=== PATIENT | female | born 1990 | race Caucasian/White ===

== ENCOUNTER → 2020-09-07 | Outpatient (CLI) | payer BC ==
[~2020-09-07] MED LIST: CYCL-1 PO; PROC5TAB56 PO; SUMA1TAB12 PO; SUMA25TA35 PO
== END | disposition home or self-care (01) ==
LOC: RAD 12:24
PROVIDERS: ATTEND Internal Medicine Hematology & Oncology
DX: R20.0 Anesthesia of skin (principal); R20.2 Paresthesia of skin
CPT/HCPCS: 72141

== ENCOUNTER 2020-09-28 09:02 | Outpatient (CLI) | payer BC ==
[2020-09-28] MEDS ORDERED: GADOTERATE MEGLUMINE 7.5 MMOL/15 ML VIAL IV ONE (14:01)
== END 2020-09-28 23:59 | disposition home or self-care (01) ==
LOC: RAD 09:02
PROVIDERS: ATTEND Internal Medicine Hematology & Oncology
DX: G35 Multiple sclerosis (principal); G93.89 Other specified disorders of brain
CPT/HCPCS: 70553; A9575

== ENCOUNTER 2024-05-10 17:45 | Emergency (ER) | payer BC, OTHER ==
[~2024-05-10] VITALS: Ht 175.3 cm; Wt 82.5 kg
[2024-05-10 18:51] LABS: BILIRUBIN,URINE NEGATIVE (Neg); CLARITY,URINE CLOUDY (Clear); COLOR,URINE YELLOW (Yellow); GLUCOSE, URINE NEGATIVE (Neg); KETONES,URINE NEGATIVE (Neg); LEUKOCYTE ESTERASE ,URINE MODERATE (Neg); NITRITES, URINE POSITIVE (Neg); OCCULT BLOOD,URINE MODERATE (Neg); PROTEIN,URINE TRACE mg/dl (Neg); UROBILINOGEN,URINE 0.2 E.U/dL (0.2-1.0)
[2024-05-10 19:00] LABS: UA COLLECTION TYPE CLN CATCH MIDSTREAM
[2024-05-10 19:03] LABS: BACTERIA,URINE 4+ /HPF (Neg); SQUAMOUS EPITHELIAL CELL,UR FEW /LPF (FEW); WBC,URINE TNTC /HPF (0-4)
[2024-05-10 19:37] LABS: BASOPHILS % (AUTO) 0.3 % (0-1); EOSINOPHILS % (AUTO) 0.4 % (0-6); HEMATOCRIT 35.5 % (35.0-45.0); HEMOGLOBIN 12.2 g/dl (12.0-16.0); LYMPHOCYTES # (AUTO) 0.8 X10'3 (1.1-4.8); LYMPHOCYTES % (AUTO) 8.9 % (21-51); MEAN CORPUSCULAR HEMOGLOBIN 33.4 PG (27.0-31.0); MEAN CORPUSCULAR HGB CONC 34.4 g/dL (33.0-36.5); MEAN PLATELET VOLUME 7.9 FL (7.4-10.4); MONOCYTES # (AUTO) 0.4 X10'3 (0-0.9); MONOCYTES % (AUTO) 4.5 % (2-12); NEUTROPHILS # (AUTO) 8.2 X10'3 (1.8-7.7); NEUTROPHILS % (AUTO) 85.9 % (42-75); PLATELET COUNT 256 X10'3 (140-440); RED BLOOD COUNT 3.66 X10'6 (4.20-5.60); RED CELL DISTRIBUTION WIDTH 12.8 % (11.5-14.5); WHITE BLOOD COUNT 9.5 X10'3 (4.5-11.0)
[2024-05-10 19:51] LABS: ALANINE AMINOTRANSFERASE 32 U/L (12-78); ALBUMIN 4.2 G/DL (3.4-5.0); ALBUMIN/GLOBULIN RATIO 1.3 (1.1-1.5); ALKALINE PHOSPHATASE 89 IU/L (46-116); ANION GAP 9 (8-16); ASPARTATE AMINO TRANSFERASE 37 U/L (10-37); BILIRUBIN,TOTAL 0.4 MG/DL (0.1-1.0); BLOOD UREA NITROGEN 10 MG/DL (7-18); BUN/CREATININE RATIO 16.9 (10.0-20.0); CALCIUM 8.9 MG/DL (8.5-10.1); CHLORIDE 100 MMOL/L (99-107); CREATININE 0.59 MG/DL (0.40-0.90); GLUCOSE 110 MG/DL (70-104); POTASSIUM 4.2 MMOL/L (3.5-5.1); SODIUM 136 MMOL/L (135-145); TOTAL CARBON DIOXIDE 26.6 MMOL/L (24-32); TOTAL PROTEIN 7.5 G/DL (6.4-8.2); eCRCL 142 ML/MIN; eGFR > 90 ML/MIN
[2024-05-10] MEDS: diphenhydrAMINE 50 mg/ml inj IV ONE (19:58)
[2024-05-10] MEDS: proCHLORperazine 10 MG/2 ml inj IV ONE (19:59)
[2024-05-10] MEDS: ketorolac trometh 15mg/ml vial 15 MG/ML ML IV ONE (19:59)
[2024-05-10] MEDS: normal saline 1000ML IV soln IVB ONE (20:00)
[2024-05-10] MEDS: CefTRIAXone/D5W-Rocephin 1gm 50 ML IV ONE (20:54)
[2024-05-10] MEDS ORDERED: CEFP200T13 PO (21:35)
[2024-05-10] MEDS: acetaminophen 325mg tablet PO ONE (21:36)
[2024-05-10] MEDS: HYDROcodone/acetaminophen 5mg/325mg tablet PO ONE (22:22)
[2024-05-10 23:56] VITALS: BP 103/58; PULSE 120; RESP 15; TEMP 100; O2SAT 100
== END 2024-05-10 23:58 | disposition home or self-care (01) ==
LOC: ER 17:46
DX: N10 Acute pyelonephritis (principal); G43.909 Migraine, unspecified, not intractable, without status migrainosus; M19.90 Unspecified osteoarthritis, unspecified site; D64.9 Anemia, unspecified; Z72.89 Other problems related to lifestyle; Z90.89 Acquired absence of other organs
CPT/HCPCS: 36415; 71045; 76770; 80053; 81001; 85025; 87088; 96361; 96365; 96375; 99285; J0696; J0780; J1200; J1885; J7030

== ENCOUNTER 2024-05-14 20:39 | Inpatient (IN) | payer OTHER ==
[~2024-05-14] VITALS: Ht 175.3 cm; Wt 180.0 kg
[~2024-05-14 20:39] MED LIST changes: +CEFP200T13 PO
[2024-05-14 21:55] LABS: BASOPHILS % (AUTO) 0.5 % (0-1); EOSINOPHILS # (AUTO) 0.1 X10'3 (0-0.9); EOSINOPHILS % (AUTO) 1.8 % (0-6); HEMATOCRIT 32.3 % (35.0-45.0); LYMPHOCYTES # (AUTO) 1.6 X10'3 (1.1-4.8); LYMPHOCYTES % (AUTO) 34.3 % (21-51); MEAN CORPUSCULAR HEMOGLOBIN 33.2 PG (27.0-31.0); MEAN CORPUSCULAR VOLUME 97.6 FL (78-98); MEAN PLATELET VOLUME 7.9 FL (7.4-10.4); MONOCYTES # (AUTO) 0.3 X10'3 (0-0.9); MONOCYTES % (AUTO) 6.4 % (2-12); NEUTROPHILS # (AUTO) 2.7 X10'3 (1.8-7.7); PLATELET COUNT 288 X10'3 (140-440); RED BLOOD COUNT 3.31 X10'6 (4.20-5.60); RED CELL DISTRIBUTION WIDTH 12.8 % (11.5-14.5); WHITE BLOOD COUNT 4.8 X10'3 (4.5-11.0)
[2024-05-14 22:02] LABS: ALANINE AMINOTRANSFERASE 101 U/L (12-78); ALBUMIN 3.7 G/DL (3.4-5.0); ALBUMIN/GLOBULIN RATIO 1.1 (1.1-1.5); ALKALINE PHOSPHATASE 123 IU/L (46-116); ANION GAP 6 (8-16); ASPARTATE AMINO TRANSFERASE 29 U/L (10-37); BILIRUBIN,TOTAL 0.2 MG/DL (0.1-1.0); BLOOD UREA NITROGEN 6 MG/DL (7-18); BUN/CREATININE RATIO 14.3 (10.0-20.0); CALCIUM 8.9 MG/DL (8.5-10.1); CHLORIDE 105 MMOL/L (99-107); CREATININE 0.42 MG/DL (0.40-0.90); GLUCOSE 99 MG/DL (70-104); POTASSIUM 3.7 MMOL/L (3.5-5.1); SODIUM 143 MMOL/L (135-145); TOTAL CARBON DIOXIDE 31.8 MMOL/L (24-32); TOTAL PROTEIN 7.2 G/DL (6.4-8.2); eCRCL 199 ML/MIN; eGFR > 90 ML/MIN
[2024-05-14 22:05] LABS: BILIRUBIN,URINE NEGATIVE (Neg); GLUCOSE, URINE NEGATIVE (Neg); KETONES,URINE NEGATIVE (Neg); LEUKOCYTE ESTERASE ,URINE MODERATE (Neg); NITRITES, URINE POSITIVE (Neg); OCCULT BLOOD,URINE MODERATE (Neg); PH,URINE 6.5 (4.8-8.0); PROTEIN,URINE NEGATIVE (Neg); UROBILINOGEN,URINE 0.2 E.U/dL (0.2-1.0)
[2024-05-14 22:07] LABS: CLARITY,URINE SLIGHTLY CLOUDY (Clear); COLOR,URINE AMBER (Yellow); UA COLLECTION TYPE STRAIGHT CATH; URINE HCG NEGATIVE (NEG)
[2024-05-14 22:11] LABS: BACTERIA,URINE 3+ /HPF (Neg); RBC,URINE 20-50 /HPF (0-2); SQUAMOUS EPITHELIAL CELL,UR NONE SEEN /LPF (FEW); WBC CLUMPS,URINE MANY /HPF (NEGATIVE); WBC,URINE TNTC /HPF (0-4)
[2024-05-14] MEDS: proCHLORperazine 10 MG/2 ml inj IV ONE (22:11)
[2024-05-14] MEDS: diphenhydrAMINE 50 mg/ml inj IV ONE (22:11)
[2024-05-14] MEDS: normal saline 1000ml 1,000 ML IV ONE (22:12)
[2024-05-14] MEDS: piperacillin/tazo 3.375gm/50ml 50 ML IV ONE (22:30)
[2024-05-14] MEDS: morphine 4 MG/ML inj SYRINge IV ONE (22:33)
[2024-05-15] VITALS (8 sets, daily range): BP systolic 100–115; BP diastolic 65–77; PULSE 76–85; RESP 16–18; TEMP 97.3–99.3; O2SAT 94–98
[2024-05-15] MEDS ORDERED: bisacodyl 10mg suppository rectal RC PRN (00:10)
[2024-05-15] MEDS ORDERED: potassium Cl 20 mEq SR tablet PO PRN ×2 (00:10)
[2024-05-15] MEDS ORDERED: acetaminophen 325mg tablet PO PRN (00:10)
[2024-05-15] MEDS ORDERED: magnesium Cl slow-release 64mg tablet PO PRN (00:10)
[2024-05-15] MEDS ORDERED: magnesium sulf-water 2g/50mL 50 ML IV PRN (00:10)
[2024-05-15] MEDS ORDERED: magnesium hydroxide 30ml (MOM) UD suspension PO PRN (00:10)
[2024-05-15] MEDS ORDERED: magnesium sulf-water 4G/100mL 100 ML IV PRN (00:10)
[2024-05-15] MEDS ORDERED: potassium Cl 40MEQ/1/2NS 520ml 520 ML IV PRN (00:10)
[2024-05-15] MEDS: normal saline 1000ml 1,000 ML IV SCH (00:53)
[2024-05-15 00:58] LABS: PRO BRAIN NATRIURETIC PEPTIDE 384 PG/ML (0-125)
[2024-05-15] MEDS ORDERED: MODA100T31 PO (01:43)
[2024-05-15] MEDS ORDERED: CYCL-394 PO (01:43)
[2024-05-15] MEDS ORDERED: OXCA150T53 PO (01:43)
[2024-05-15] MEDS ORDERED: GABA300C PO (01:43)
[2024-05-15] MEDS ORDERED: VALA100031 PO (01:43)
[2024-05-15] MEDS ORDERED: ONDA-243 PO (01:43)
[2024-05-15] MEDS ORDERED: HYDR-3965 PO (01:43)
[2024-05-15] MEDS ORDERED: OMEP40CA21 PO (01:43)
[2024-05-15] MEDS: morphine 2 MG/ML inj. syringe IV PRN (03:14)
[2024-05-15] MEDS ORDERED: NAPROXEN SOD PO PRN (04:25)
[2024-05-15] MEDS ORDERED: SUMATRIPTAN SUCC PO PRN (04:25)
[2024-05-15] MEDS ORDERED: OXCA150T14 PO (04:44)
[2024-05-15 07:01] LABS: POTASSIUM 3.6 MMOL/L (3.5-5.1)
[2024-05-15] MEDS: K and/or MAG REPLACEMENT MC SCH (07:06)
[2024-05-15] MEDS: enoxaparin 40mg/0.4ml syringe SUBCUT SCH (08:00)
[2024-05-15] MEDS: docusate sod 100mg capsule PO SCH (08:00)
[2024-05-15] MEDS ORDERED: OXCARBAZEPINE PO SCH (08:00)
[2024-05-15] MEDS ORDERED: modafinil 100mg tablet PO PRN (08:00)
[2024-05-15] MEDS: piperacillin/tazo 3.375gm/50ml 50 ML IV SCH (08:20)
[2024-05-15] MEDS: gabapentin 300mg capsule PO SCH (08:21)
[2024-05-15] MEDS: cyclobenzaprine 10mg tablet PO SCH (08:21)
[2024-05-15] MEDS: HYDROcodone/acetaminophen 5mg/325mg tablet PO SCH (08:23)
[2024-05-15] MEDS: pantoprazole 40mg Tablet.DR PO SCH (08:23)
[2024-05-15] MEDS: valacyclovir 500mg tablet PO SCH (08:23)
[2024-05-15] MEDS: oxcarbazepine 150mg tablet PO SCH (08:23)
[2024-05-15] MEDS: SUMAtriptan 25 MG tablet PO PRN (10:09)
[2024-05-15] MEDS: HYDROcodone/acetaminophen 5mg/325mg tablet PO PRN (12:04)
[2024-05-16] MEDS: HYDROmorphone/PF 0.2 MG/ML SYRINGE IV PRN (04:58)
[2024-05-16 06:00] VITALS: BP 129/78; PULSE 76; RESP 16; TEMP 97; O2SAT 96
[2024-05-16 06:49] LABS: BASOPHILS % (AUTO) 0.5 % (0-1); EOSINOPHILS # (AUTO) 0.1 X10'3 (0-0.9); EOSINOPHILS % (AUTO) 2.8 % (0-6); HEMATOCRIT 30.1 % (35.0-45.0); HEMOGLOBIN 10.4 g/dl (12.0-16.0); LYMPHOCYTES # (AUTO) 2.2 X10'3 (1.1-4.8); LYMPHOCYTES % (AUTO) 47.2 % (21-51); MEAN CORPUSCULAR HEMOGLOBIN 33.4 PG (27.0-31.0); MEAN CORPUSCULAR HGB CONC 34.5 g/dL (33.0-36.5); MEAN CORPUSCULAR VOLUME 96.8 FL (78-98); MEAN PLATELET VOLUME 7.7 FL (7.4-10.4); MONOCYTES # (AUTO) 0.4 X10'3 (0-0.9); MONOCYTES % (AUTO) 8.2 % (2-12); NEUTROPHILS # (AUTO) 1.9 X10'3 (1.8-7.7); NEUTROPHILS % (AUTO) 41.3 % (42-75); PLATELET COUNT 245 X10'3 (140-440); RED BLOOD COUNT 3.11 X10'6 (4.20-5.60); RED CELL DISTRIBUTION WIDTH 12.8 % (11.5-14.5); WHITE BLOOD COUNT 4.6 X10'3 (4.5-11.0)
[2024-05-16 06:58] LABS: ALANINE AMINOTRANSFERASE 56 U/L (12-78); ALBUMIN 2.9 G/DL (3.4-5.0); ALBUMIN/GLOBULIN RATIO 0.9 (1.1-1.5); ALKALINE PHOSPHATASE 91 IU/L (46-116); ANION GAP 5 (8-16); ASPARTATE AMINO TRANSFERASE 18 U/L (10-37); BILIRUBIN,TOTAL 0.2 MG/DL (0.1-1.0); BLOOD UREA NITROGEN 7 MG/DL (7-18); BUN/CREATININE RATIO 13.2 (10.0-20.0); CALCIUM 8.6 MG/DL (8.5-10.1); CHLORIDE 107 MMOL/L (99-107); CREATININE 0.53 MG/DL (0.40-0.90); GLUCOSE 97 MG/DL (70-104); MAGNESIUM 2.1 MG/DL (1.5-2.4); POTASSIUM 3.7 MMOL/L (3.5-5.1); SODIUM 140 MMOL/L (135-145); TOTAL CARBON DIOXIDE 27.7 MMOL/L (24-32); TOTAL PROTEIN 6.2 G/DL (6.4-8.2); eCRCL 158 ML/MIN; eGFR > 90 ML/MIN
[2024-05-16 10:00] VITALS: BP 130/81; PULSE 73; RESP 16; TEMP 98.5; O2SAT 94
[2024-05-16] MEDS: HYDROcodone/acetaminophen 5mg/325mg tablet PO PRN (17:01)
[2024-05-16 18:00] VITALS: BP 122/80; PULSE 73; RESP 15; TEMP 98; O2SAT 96
[2024-05-16] MEDS: MEROPENEM 500MG/50ML-NS IVPB 50 ML IV SCH (20:19)
[2024-05-16] MEDS: gabapentin 300mg capsule PO SCH (20:20)
[2024-05-16 22:00] VITALS: BP 109/62; PULSE 77; RESP 16; TEMP 98.6; O2SAT 95
[2024-05-17] MEDS: ondansetron/PF 4mg/2ml inj IV PRN (01:18)
[2024-05-17 06:00] VITALS: BP 105/63; PULSE 86; RESP 16; TEMP 100.1; O2SAT 92
[2024-05-17 06:35] LABS: BASOPHILS % (AUTO) 0.2 % (0-1); EOSINOPHILS # (AUTO) 0.1 X10'3 (0-0.9); EOSINOPHILS % (AUTO) 1.4 % (0-6); HEMOGLOBIN 11.5 g/dl (12.0-16.0); LYMPHOCYTES # (AUTO) 0.7 X10'3 (1.1-4.8); LYMPHOCYTES % (AUTO) 9.8 % (21-51); MEAN CORPUSCULAR HEMOGLOBIN 32.9 PG (27.0-31.0); MEAN CORPUSCULAR HGB CONC 33.8 g/dL (33.0-36.5); MEAN CORPUSCULAR VOLUME 97.1 FL (78-98); MEAN PLATELET VOLUME 7.7 FL (7.4-10.4); MONOCYTES # (AUTO) 0.3 X10'3 (0-0.9); MONOCYTES % (AUTO) 3.6 % (2-12); NEUTROPHILS # (AUTO) 6.1 X10'3 (1.8-7.7); PLATELET COUNT 262 X10'3 (140-440); RED CELL DISTRIBUTION WIDTH 12.7 % (11.5-14.5); WHITE BLOOD COUNT 7.2 X10'3 (4.5-11.0)
[2024-05-17 06:56] LABS: ALANINE AMINOTRANSFERASE 50 U/L (12-78); ALBUMIN 3.4 G/DL (3.4-5.0); ALBUMIN/GLOBULIN RATIO 1.1 (1.1-1.5); ALKALINE PHOSPHATASE 92 IU/L (46-116); ANION GAP 7 (8-16); ASPARTATE AMINO TRANSFERASE 12 U/L (10-37); BILIRUBIN,TOTAL 0.2 MG/DL (0.1-1.0); BLOOD UREA NITROGEN 6 MG/DL (7-18); CALCIUM 8.5 MG/DL (8.5-10.1); CHLORIDE 105 MMOL/L (99-107); GLUCOSE 91 MG/DL (70-104); MAGNESIUM 1.9 MG/DL (1.5-2.4); POTASSIUM 3.5 MMOL/L (3.5-5.1); SODIUM 143 MMOL/L (135-145); TOTAL CARBON DIOXIDE 31.3 MMOL/L (24-32); TOTAL PROTEIN 6.6 G/DL (6.4-8.2); eCRCL 139 ML/MIN; eGFR > 90 ML/MIN
[2024-05-17 08:00] VITALS: RESP 16; O2SAT 92
[2024-05-17] MEDS: mag hydrox/Alum hydrox/simeth 30ml oral suspension PO PRN ×2 (08:59→16:34)
[2024-05-17 18:00] VITALS: BP 114/77; PULSE 85; RESP 16; TEMP 98.4; O2SAT 95
[2024-05-17 20:00] VITALS: RESP 16; O2SAT 95
[2024-05-17 22:00] VITALS: BP 118/78; PULSE 81; RESP 16; TEMP 98.9; O2SAT 94
[2024-05-18] VITALS (7 sets, daily range): BP systolic 108–122; BP diastolic 74–82; PULSE 71–95; RESP 14–70; TEMP 97.5–99.1; O2SAT 95–96
[2024-05-18 06:33] LABS: BASOPHILS % (AUTO) 0.6 % (0-1); EOSINOPHILS # (AUTO) 0.1 X10'3 (0-0.9); EOSINOPHILS % (AUTO) 2.4 % (0-6); HEMATOCRIT 34.4 % (35.0-45.0); HEMOGLOBIN 11.8 g/dl (12.0-16.0); LYMPHOCYTES # (AUTO) 1.1 X10'3 (1.1-4.8); LYMPHOCYTES % (AUTO) 39.9 % (21-51); MEAN CORPUSCULAR HEMOGLOBIN 33.1 PG (27.0-31.0); MEAN CORPUSCULAR HGB CONC 34.4 g/dL (33.0-36.5); MEAN CORPUSCULAR VOLUME 96.1 FL (78-98); MEAN PLATELET VOLUME 7.4 FL (7.4-10.4); MONOCYTES # (AUTO) 0.4 X10'3 (0-0.9); MONOCYTES % (AUTO) 13.9 % (2-12); NEUTROPHILS # (AUTO) 1.2 X10'3 (1.8-7.7); NEUTROPHILS % (AUTO) 43.2 % (42-75); PLATELET COUNT 311 X10'3 (140-440); RED BLOOD COUNT 3.58 X10'6 (4.20-5.60); RED CELL DISTRIBUTION WIDTH 12.9 % (11.5-14.5); WHITE BLOOD COUNT 2.7 X10'3 (4.5-11.0)
[2024-05-18 07:04] LABS: ALANINE AMINOTRANSFERASE 43 U/L (12-78); ALBUMIN 3.3 G/DL (3.4-5.0); ALBUMIN/GLOBULIN RATIO 0.9 (1.1-1.5); ALKALINE PHOSPHATASE 90 IU/L (46-116); ANION GAP 8 (8-16); ASPARTATE AMINO TRANSFERASE 17 U/L (10-37); BILIRUBIN,TOTAL 0.2 MG/DL (0.1-1.0); BLOOD UREA NITROGEN 8 MG/DL (7-18); BUN/CREATININE RATIO 13.3 (10.0-20.0); CALCIUM 8.6 MG/DL (8.5-10.1); CHLORIDE 103 MMOL/L (99-107); GLUCOSE 89 MG/DL (70-104); MAGNESIUM 2.3 MG/DL (1.5-2.4); POTASSIUM 3.4 MMOL/L (3.5-5.1); SODIUM 140 MMOL/L (135-145); TOTAL CARBON DIOXIDE 29.2 MMOL/L (24-32); TOTAL PROTEIN 6.8 G/DL (6.4-8.2); eCRCL 139 ML/MIN; eGFR > 90 ML/MIN
[2024-05-18] MEDS ORDERED: potassium Cl 20 mEq SR tablet PO PRN (07:05)
[2024-05-18] MEDS ORDERED: potassium Cl 40MEQ/1/2NS 520ml 520 ML IV PRN (07:05)
[2024-05-18 07:54] LABS: PLATELET ESTIMATE NORMAL; TOTAL CELLS COUNTED 100
[2024-05-18] MEDS: potassium Cl 20 mEq SR tablet PO PRN (09:09)
[2024-05-18] MEDS: simethicone 80mg chew tab PO SCH (20:58)
[2024-05-18] MEDS: lactobacillus rhamnosus 10,000 MMU CELLS/CAPSULE PO SCH (20:58)
[2024-05-19 06:00] VITALS: BP 92/55; PULSE 67; RESP 16; TEMP 98.3; O2SAT 95
[2024-05-19 06:11] LABS: BASOPHILS % (AUTO) 0.5 % (0-1); EOSINOPHILS # (AUTO) 0.1 X10'3 (0-0.9); EOSINOPHILS % (AUTO) 2.7 % (0-6); HEMATOCRIT 33.9 % (35.0-45.0); HEMOGLOBIN 11.9 g/dl (12.0-16.0); LYMPHOCYTES # (AUTO) 1.4 X10'3 (1.1-4.8); LYMPHOCYTES % (AUTO) 40.1 % (21-51); MEAN CORPUSCULAR HEMOGLOBIN 33.6 PG (27.0-31.0); MEAN PLATELET VOLUME 7.8 FL (7.4-10.4); MONOCYTES # (AUTO) 0.4 X10'3 (0-0.9); MONOCYTES % (AUTO) 12.5 % (2-12); NEUTROPHILS # (AUTO) 1.5 X10'3 (1.8-7.7); NEUTROPHILS % (AUTO) 44.2 % (42-75); PLATELET COUNT 334 X10'3 (140-440); RED BLOOD COUNT 3.53 X10'6 (4.20-5.60); RED CELL DISTRIBUTION WIDTH 12.8 % (11.5-14.5); WHITE BLOOD COUNT 3.4 X10'3 (4.5-11.0)
[2024-05-19 06:25] LABS: ALANINE AMINOTRANSFERASE 35 U/L (12-78); ALBUMIN 3.3 G/DL (3.4-5.0); ALKALINE PHOSPHATASE 88 IU/L (46-116); ANION GAP 7 (8-16); ASPARTATE AMINO TRANSFERASE 17 U/L (10-37); BILIRUBIN,TOTAL 0.2 MG/DL (0.1-1.0); BLOOD UREA NITROGEN 8 MG/DL (7-18); BUN/CREATININE RATIO 13.6 (10.0-20.0); CALCIUM 8.5 MG/DL (8.5-10.1); CHLORIDE 107 MMOL/L (99-107); CREATININE 0.59 MG/DL (0.40-0.90); GLUCOSE 103 MG/DL (70-104); MAGNESIUM 1.9 MG/DL (1.5-2.4); SODIUM 141 MMOL/L (135-145); TOTAL CARBON DIOXIDE 27.5 MMOL/L (24-32); TOTAL PROTEIN 6.7 G/DL (6.4-8.2); eCRCL 142 ML/MIN; eGFR > 90 ML/MIN
[2024-05-19 10:00] VITALS: BP 106/67; PULSE 76; RESP 16; TEMP 97.7; O2SAT 97
[2024-05-19 10:45] VITALS: RESP 16; O2SAT 97
[2024-05-19] MEDS ORDERED: ertapenem sod inj 1 GM in normal saline 100ml IV soln 100 ML IV ONE (17:30)
[2024-05-19 18:00] VITALS: BP 102/52; PULSE 75; RESP 16; TEMP 97.7; O2SAT 100
[2024-05-19] MEDS: ertapenem sod inj 1 GM in normal saline 100ml IV soln 110 ML IV ONE (18:07)
== END 2024-05-19 19:38 | disposition home health service (06) | DRG 699 ==
LOC: ER 20:40 → ORTHO 4S 05-15 00:19 → EDBEDREQ 05-15 01:06
PROVIDERS: ADMIT Internal Medicine Pulmonary Disease; ATTEND Internal Medicine
PROC: 05HF33Z Insertion of Infusion Device into Left Cephalic Vein, Percutaneous Approach (ICD-10-PCS; principal; 2024-05-18)
PROC: B54NZZA Ultrasonography of Left Upper Extremity Veins, Guidance (ICD-10-PCS; 2024-05-18)
DX: T83.518A Infection and inflammatory reaction due to other urinary catheter, initial encounter (principal); N10 Acute pyelonephritis; Z16.24 Resistance to multiple antibiotics; G43.909 Migraine, unspecified, not intractable, without status migrainosus; G35 Multiple sclerosis; G62.9 Polyneuropathy, unspecified; G89.4 Chronic pain syndrome; Y83.8 Other surgical procedures as the cause of abnormal reaction of the patient, or of later complication, without mention of misadventure at the time of the procedure; Z79.899 Other long term (current) drug therapy; Z88.7 Allergy status to serum and vaccine; Y92.89 Other specified places as the place of occurrence of the external cause
CPT/HCPCS: 36410; 36415; 74176; 76937; 80053; 81001; 81025; 83605; 83735; 83880; 84132; 84145; 85007; 85025; 85651; 87040; 87077; 87081; 87088; 87186; 87324; 87449; 97161; 97530; 99285; C1751; G0378; J0780; J1171; J1200; J1335; J2185; J2270; J2405; J2543; J7030

== ENCOUNTER 2024-05-20 14:57 | Day surgery (SDC) | payer OTHER ==
[~2024-05-20] VITALS: Ht 175.3 cm; Wt 79.5 kg
[~2024-05-20 14:57] MED LIST changes: -CEFP200T13 PO; +CYCL-394 PO; +GABA300C PO; +HYDR-3965 PO; +MODA100T31 PO; +OMEP40CA21 PO; +ONDA-243 PO; +OXCA150T14 PO; -PROC5TAB56 PO; +VALA100031 PO
[2024-05-20] MEDS: ertapenem sod inj 1 GM in normal saline 100ml IV soln 110 ML IV SCH (15:52)
[2024-05-20 15:57] VITALS: BP 110/66; PULSE 90; RESP 16; TEMP 98.3; O2SAT 97
[2024-05-20 16:00] VITALS: BP 110/66; PULSE 88; RESP 16; O2SAT 98
== END 2024-05-20 17:10 | disposition home or self-care (01) ==
LOC: SSTAY O 14:57
PROVIDERS: ATTEND Internal Medicine
DX: N10 Acute pyelonephritis (principal); G43.909 Migraine, unspecified, not intractable, without status migrainosus; G35 Multiple sclerosis; G62.9 Polyneuropathy, unspecified; M19.90 Unspecified osteoarthritis, unspecified site; Z16.24 Resistance to multiple antibiotics; Z79.899 Other long term (current) drug therapy; Z90.89 Acquired absence of other organs; Z88.7 Allergy status to serum and vaccine
CPT/HCPCS: 96365; 96366; A6258; J1335; 96372